=== PATIENT | male | born 1940 | race Caucasian/White ===

== ENCOUNTER → 2020-01-31 | Outpatient (CLI) | payer OTHER, MEDICARE | LOC: SJCVC 11:00 | DX: R94.31 Abnormal electrocardiogram [ECG] [EKG] (principal); I45.10 Unspecified right bundle-branch block; I44.0 Atrioventricular block, first degree; I25.10 Atherosclerotic heart disease of native coronary artery without angina pectoris; I10 Essential (primary) hypertension; I65.23 Occlusion and stenosis of bilateral carotid arteries; E78.5 Hyperlipidemia, unspecified; I71.4 Abdominal aortic aneurysm, without rupture; I73.9 Peripheral vascular disease, unspecified ==

== ENCOUNTER → 2020-02-19 | Outpatient (CLI) | payer OTHER, MEDICARE | LOC: SJCVCIMAG 02-11 11:57 | DX: I73.9 Peripheral vascular disease, unspecified (principal); E78.5 Hyperlipidemia, unspecified; I71.4 Abdominal aortic aneurysm, without rupture; Z98.890 Other specified postprocedural states; Z87.891 Personal history of nicotine dependence ==

== ENCOUNTER → 2020-08-04 | Outpatient (CLI) | payer OTHER, MEDICARE | LOC: SJCVCIMAG 09:29 | PROVIDERS: ATTEND Internal Medicine | DX: I65.23 Occlusion and stenosis of bilateral carotid arteries (principal); I45.10 Unspecified right bundle-branch block; I25.10 Atherosclerotic heart disease of native coronary artery without angina pectoris; E78.5 Hyperlipidemia, unspecified; I73.9 Peripheral vascular disease, unspecified; I10 Essential (primary) hypertension; I71.4 Abdominal aortic aneurysm, without rupture; I25.2 Old myocardial infarction; Z95.1 Presence of aortocoronary bypass graft; Z79.899 Other long term (current) drug therapy; Z87.891 Personal history of nicotine dependence ==

== ENCOUNTER → 2020-08-14 | Outpatient (CLI) | payer OTHER, MEDICARE | LOC: SJCVCIMAG 10:38 | PROVIDERS: ATTEND Internal Medicine | DX: E04.2 Nontoxic multinodular goiter (principal); Z87.891 Personal history of nicotine dependence ==

== ENCOUNTER → 2020-09-14 | Outpatient (CLI) | payer OTHER, MEDICARE ==
--- NOTE | 2020-09-15 15:07 | PATH ---
[facility] [place] [address] PATHOLOGY RPT PROCEDURE Name: MARIMAR IRIZARRY Room #: REG [facility] M.R.#: [id number] Admission: 09/14/20 Date of : 40 Discharge: Report #: [id number] Path Case #: [id number] Note [facility] Accession Number: [id number] TESTS RESULT FLAG UNITS REF RANGE LAB Clinician Provided Cytology Information No. of containers..01 Other (Miscellaneous) Source: 01 LT INFERIOR THYROID DIAGNOSIS: 02 LEFT INFERIOR THYROID INADEQUATE, INSUFFICIENT CELLS FOR STUDY, SEE COMMENT. COLLOID IS PRESENT. RED BLOOD CELLS ARE PRESENT. THIS INTERPRETATION INCLUDES EVALUATION OF A CELL BLOCK. Comment: Examination shows colloid and a few macrophages. At least 6 groups of thyroid follicular cells are required for adequacy and the current specimen has rare follicular cells. Therefore, the specimen is inadequate for examination. Findings may be suggestive of a colloid nodule. Correlate clinically and follow-up as indicated. Pathologist ICD10: 02 E07.9 Signed out by: 02 Sherie Dumont MD, Pathologist NPI- [id number] Performed by: 01 Arlene Bonds, Environmental Coordinator ([facility]) Gross description: 01 10ML, CLEAR COLORLESS, 2FX 2AD /LCS 09/14/2020 1621 Local FLAG LEGEND: L-Low Normal,H-High Normal,LL-Alert Low,HH-Alert High <-Panic Low,>-Panic High,A-Abnormal,AA-Critical Abnormal Performed at: 01 [facility] [address] [facility] [address] [place] [address] Alexis Swanson MD, [address] [address] Sherie Dumont MD, Specimen Comment: A courtesy copy of this report has been sent to [phone] Specimen Comment: [id number] Specimen Comment: Report sent to [facility] [address] [place] [address] PATHOLOGY RPT PROCEDURE Name: MARIMAR IRIZARRY Room #: REG SHELLY Jensen#: [id number] Admission: 09/14/20 Date of : 40 Discharge: Report #: [id number] Path Case #: [id number] Performed at: 01 [facility] [place] [address] [facility] [address], [place], [place] [id number] MD Alexis Swanson MD Phone: [phone]
== END | disposition home or self-care (01) ==
LOC: ULTRA 09:47
PROVIDERS: ATTEND Otolaryngology Plastic Surgery within the Head & Neck
DX: E04.1 Nontoxic single thyroid nodule (principal)

== ENCOUNTER → 2021-02-09 | Outpatient (CLI) | payer OTHER, MEDICARE | LOC: SJCVC 13:11 | PROVIDERS: ATTEND Internal Medicine | DX: R94.31 Abnormal electrocardiogram [ECG] [EKG] (principal); I45.10 Unspecified right bundle-branch block; R00.1 Bradycardia, unspecified; I65.23 Occlusion and stenosis of bilateral carotid arteries; I25.10 Atherosclerotic heart disease of native coronary artery without angina pectoris; I11.9 Hypertensive heart disease without heart failure; E78.5 Hyperlipidemia, unspecified; I71.4 Abdominal aortic aneurysm, without rupture; I73.9 Peripheral vascular disease, unspecified; Z87.891 Personal history of nicotine dependence; Z79.899 Other long term (current) drug therapy; Z79.82 Long term (current) use of aspirin ==

== ENCOUNTER → 2021-08-04 | Outpatient (CLI) | payer OTHER, MEDICARE | LOC: SJCVCIMAG 07:24 | PROVIDERS: ATTEND Internal Medicine | DX: I08.0 Rheumatic disorders of both mitral and aortic valves (principal); R94.31 Abnormal electrocardiogram [ECG] [EKG]; I44.0 Atrioventricular block, first degree; I45.10 Unspecified right bundle-branch block; I65.23 Occlusion and stenosis of bilateral carotid arteries; I25.10 Atherosclerotic heart disease of native coronary artery without angina pectoris; I10 Essential (primary) hypertension; E78.5 Hyperlipidemia, unspecified; I71.4 Abdominal aortic aneurysm, without rupture; I73.9 Peripheral vascular disease, unspecified; Z87.891 Personal history of nicotine dependence; Z79.82 Long term (current) use of aspirin; Z79.899 Other long term (current) drug therapy; Z95.1 Presence of aortocoronary bypass graft ==